=== PATIENT | female | born 1950 | race Caucasian/White ===

== ENCOUNTER 2016-09-22 21:52 | Emergency (ER) | payer BC, MEDICAID ==
[~2016-09-22] VITALS: Ht 162.6 cm; Wt 75.5 kg
[~2016-09-22 21:52] MED LIST: BENZ100C70 PO; CHOL50009 PO; CIPR500T4 PO; ENAL10TA PO; ONDA4TAB35 PO
[2016-09-22 22:05] VITALS: Ht 162.6 cm; Wt 75.5 kg
[2016-09-22] MEDS ORDERED: ONDANSETRON 4 MG INJ IV STA (22:15)
[2016-09-22] MEDS ORDERED: SOD CHLORIDE 0.9% 1,000 ML IV STA (22:15)
[2016-09-22] MEDS ORDERED: HYDROmorphONE 1 MG/ML SYG IV STA (22:15)
[2016-09-22] MEDS ORDERED: FAMOTIDINE 20 MG INJ IV STA (22:15)
[2016-09-22] MEDS ORDERED: LIDOCAINE/MYLANTA 40 ML BTL PO STA (22:15)
--- NOTE | 2016-09-22 22:55 | RADRPT ---
PROCEDURE: XR Chest. CLINICAL INDICATION: Chest pain. Abdominal pain TECHNIQUE: Portable AP semi erect view of the chest was obtained. COMPARISON: 18:16 FINDINGS: The cardiomediastinal silhouette is within normal limits. The lungs are clear. There is no evidenc e for pleural effusion, pneumothorax or pulmonary vascular congestion. Dextroscoliosis of the thora cic spine is again noted without evidence of acute osseous abnormality. No evidence of free air belo w the diaphragm. Calcification is visible within the aorta RPTAT:HJJR IMPRESSION: 1.No evidence for acute intrathoracic pathology or interval change from 05/14/2015. 2. Thoracic dextroscoliosis unchanged. 3. Aortic atherosclerosis is present. Physician Iris Date Time Electronically viewed and signed by Jerald Whyte Physician on 09/22/2016 22:55 /
--- NOTE | 2016-09-22 23:00 | RADRPT ---
PROCEDURE: CT abdomen and pelvis without contrast. CLINICAL INDICATION: Abdominal pain TECHNIQUE: CT scan of the abdomen and pelvis without contrast was performed. Sagittal and coronal reformatted images were obtained from the axial source images. CTDI = 18.06 mGy; DLP = 969.36 mGy-c m COMPARISON: CT 05/14/2015 FINDINGS: Visualized lower thorax: Dependent bibasilar subsegmental atelectasis is present. The visualized h eart is top normal in size. There is no evidence for pleural effusion. Liver, gallbladder, pancreas and spleen: The liver is normal and size, contour and attenuation. Th ere is no evidence for a liver mass or ductal dilatation. Cholecystectomy clips are again demonstra geoffrey. No common bile duct abnormality is demonstrated. The pancreas is unremarkable. The spleen is normal in size. Adrenal glands and genitourinary system: The adrenal glands are normal bilaterally. The kidneys are normal and size, contour and attenuation with no evidence for masses, calculi or hydronephrosis. T he ureters are unremarkable. No urinary bladder abnormality is demonstrated. The uterus is not vis ualized compatible with hysterectomy as seen previously. There is no evidence of ovarian or adnexal mass. Gastrointestinal system: The stomach is normal in caliber with no abnormality of significance. The small bowel is normal in caliber with no ileus, obstruction or wall thickening. The appendix and s urrounding fat are within the limits of normal. Mild thickening of the colonic wall is suggested. Mild nonspecific colitis mostly in the transverse colon is unable to be excluded. There is no evide nce of diverticulitis. No pneumatosis is present. Peritoneum, retroperitoneum, lymph nodes and vessels: The abdominal aorta is normal in caliber. The re is moderate aortic and mild iliac atherosclerotic calcification. The inferior vena cava is unrem arkable. There is no evidence for adenopathy or mass. There is no ascites. No pneumoperitoneum is present Osseous structures and musculoskeletal findings: There is no fracture, lytic or blastic lesion. De mineralization and lower lumbar facet arthropathy is again noted. No muscular abnormality or soft t issue pathology is present, incidental calcified injection granulomata in the gluteal fat are seen. RPTAT:HJJR IMPRESSION: 1. Mild thickening of the colon wall predominately in the transverse segment unable to exclude colit is in the proper clinical setting and correlation with diarrhea clinically is recommended. 2. No evidence of bowel obstruction or ileus. 3. Changes of prior cholecystectomy and hysterectomy are again noted as seen on the study of 2015. 4. Dependent bibasilar subsegmental atelectasis. 5. Atherosclerotic calcification of the aorta and iliac systems Physician Iris Date Time Electronically viewed and signed by Jerald Whyte Physician on 09/22/2016 22:59 /
[2016-09-23 00:13] LABS: BASOPHILS % 0.3 % (0.0-2.0); EOSINOPHILS % 0.3 % (0.0-7.0); HEMATOCRIT 37.5 % (37.0-47.0); HEMOGLOBIN 12.3 g/dl (12.0-16.0); LYMPHOCYTES # 1.7 10^3/ul (0.8-2.9); MEAN CORPUSCULAR HEMOGLOBIN 31.5 pg (29.0-33.0); MEAN CORPUSCULAR HGB CONC 32.8 g/dl (32.0-37.0); MEAN CORPUSCULAR VOLUME 95.9 fl (82.0-101.0); MONOCYTE # 1.2 10^3/ul (0.3-0.9); MONOCYTES % 9.7 % (0.0-11.0); NEUTROPHIL # 8.7 10^3/ul (1.6-7.5); NEUTROPHILS % 73.6 % (39.0-77.0); PLATELET COUNT 215 10^3/UL (140-415); RED BLOOD COUNT 3.91 10^6/ul (4.20-5.40); WHITE BLOOD COUNT 11.8 10^3/ul (4.8-10.8)
[2016-09-23 00:33] LABS: ALANINE AMINOTRANSFERASE 27 IU/L (13-69); ALBUMIN 3.7 g/dl (3.3-4.9); ALBUMIN/GLOBULIN RATIO 1.12; ALKALINE PHOSPHATASE 80 IU/L (42-121); ANION GAP 16 (8-16); ASPARTATE AMINO TRANSFERASE 24 IU/L (15-46); BILIRUBIN,INDIRECT 0.2 mg/dl (0-1.1); BILIRUBIN,TOTAL 0.2 mg/dl (0.2-1.3); BLOOD UREA NITROGEN 25 mg/dl (7-20); CALCIUM 8.5 mg/dl (8.4-10.2); CARBON DIOXIDE 26 mmol/L (21-31); CHLORIDE 105 mmol/L (97-110); CREATININE 0.67 mg/dl (0.44-1.00); GLUCOSE 152 mg/dl (70-220); SODIUM 143 mmol/L (135-144)
[2016-09-23 00:45] LABS: TROPONIN-I < 0.012 ng/ml (0.00-0.12)
[2016-09-23 01:23] LABS: ADD UMIC NO; UR ASCORBIC ACID NEGATIVE (NEGATIVE); UR BILIRUBIN (Dip) NEGATIVE (NEGATIVE); UR BLOOD (Dip) NEGATIVE (NEGATIVE); UR CLARITY CLEAR (CLEAR); UR COLOR STRAW (YELLOW); UR GLUCOSE (Dip) 1+ mg/dL (NEGATIVE); UR KETONES (Dip) NEGATIVE (NEGATIVE); UR LEUKOCYTE ESTERASE (Dip) NEGATIVE Leu/ul (NEGATIVE); UR NITRITE (Dip) NEGATIVE (NEGATIVE); UR SPECIFIC GRAVITY (Dip) 1.014 (1.003-1.030); UR TOTAL PROTEIN (Dip) NEGATIVE (NEGATIVE); UR UROBILINOGEN (Dip) NEGATIVE (NEGATIVE)
--- NOTE | 2016-09-23 01:32 | ERD ---
ER Documentation Chief Complaint Date/Time DATE: 09/23/16 TIME: 01:31 Chief Complaint "N/V with gastritis flare up and diarrhea for past 2 days" pt crying HPI This is a 65-year-old female comes with nausea vomiting gastritis flare after she had spicy food. Patient has known history of gastritis and ulcer disease. No fevers no chills. Mild nausea but no actual vomiting. No other current complaints. ROS All systems reviewed and are negative except as per history of present illness. Medications Home Meds Active Scripts Benzonatate* (Tessalon Perle*) 100 Mg Capsule, 100 MG PO Q8H Y for COUGH, #30 CAP Prov:LAUREN GANT 05/14/15 Ciprofloxacin Hcl* (Ciprofloxacin Hcl*) 500 Mg Tablet, 500 MG PO BID, #14 TAB Prov:LAUREN GANT 05/14/15 Ondansetron Hcl* (Zofran* ODT) 4 mg -ODT Tab.disper, 4 MG PO Q4H Y for NAUSEA AND OR VOMITING, #20 TAB Prov:LAUREN GANT 05/14/15 Reported Medications Cholecalciferol* (Vitamin D*) 5,000 Unit Tablet, 5000 UNIT PO DAILY, TAB 05/14/15 Enalapril Maleate* (Enalapril Maleate*) 10 Mg Tablet, 10 MG PO DAILY, TAB 05/14/15 Allergies Allergies: Coded Allergies: No Known Allergy (Unverified , 09/22/16) PMhx/Soc History of Surgery: Yes (gallbladder) Hx Cardiac Disorders: Yes (HTN, OR 1996) Hx Alcohol Use: No Hx Substance Use: No Hx Tobacco Use: No Smoking Status: Never smoker Physical Exam Vitals Vital Signs Date Time Temp Pulse Resp B/P Pulse Ox O2 Delivery O2 Flow Rate FiO2 09/22/16 23:37 98.3 16 150/77 99 Nasal Cannula 2.0 09/22/16 22:05 97.6 60 18 212/91 98 Physical Exam Const: [] Head: Atraumatic Eyes: Normal Conjunctiva ENT: Normal External Ears, Nose and Mouth. Neck: Full range of motion..~ No meningismus. Resp: Clear to auscultation bilaterally Cardio: Regular rate and rhythm, no murmurs Abd: Soft, non tender, non distended. Normal bowel sounds Skin: No petechiae or rashes Back: No midline or flank tenderness Ext: No cyanosis, or edema Neur: Awake and alert Psych: Normal Mood and Affect Result Diagram: 09/23/16 0005 09/23/16 0005 Results 24 hrs Laboratory Tests Test 09/23/16 00:05 09/23/16 00:25 White Blood Count 11.810^3/ul Red Blood Count 3.9110^6/ul Hemoglobin 12.3g/dl Hematocrit 37.5% Mean Corpuscular Volume 95.9fl Mean Corpuscular Hemoglobin 31.5pg Mean Corpuscular Hemoglobin Concent 32.8g/dl Red Cell Distribution Width 13.0% Platelet Count 07033^3/UL Mean Platelet Volume 11.0fl Neutrophils % 73.6% Lymphocytes % 14.0% Monocytes % 9.7% Eosinophils % 0.3% Basophils % 0.3% Nucleated Red Blood Cells % 0.0/100WBC Neutrophils # 8.710^3/ul Lymphocytes # 1.710^3/ul Monocytes # 1.210^3/ul Eosinophils # 0.010^3/ul Basophils # 0.010^3/ul Nucleated Red Blood Cells # 0.010^3/ul Sodium Level 143mmol/L Potassium Level 4.0mmol/L Chloride Level 105mmol/L Carbon Dioxide Level 26mmol/L Anion Gap 16 Blood Urea Nitrogen 25mg/dl Creatinine 0.67mg/dl Glucose Level 152mg/dl Calcium Level 8.5mg/dl Total Bilirubin 0.2mg/dl Direct Bilirubin 0.00mg/dl Indirect Bilirubin 0.2mg/dl Aspartate Amino Transf (AST/SGOT) 24IU/L Alanine Aminotransferase (ALT/SGPT) 27IU/L Alkaline Phosphatase 80IU/L Troponin I < 0.012ng/ml Total Protein 7.0g/dl Albumin 3.7g/dl Globulin 3.30g/dl Albumin/Globulin Ratio 1.12 Lipase 565U/L Urine Color STRAW Urine Clarity CLEAR Urine pH 7.0 Urine Specific [place] 1.014 Urine Ketones NEGATIVEmg/dL Urine Nitrite NEGATIVEmg/dL Urine Bilirubin NEGATIVEmg/dL Urine Urobilinogen NEGATIVEmg/dL Urine Leukocyte Esterase NEGATIVELeu/ul Urine Hemoglobin NEGATIVEmg/dL Urine Glucose 1+mg/dL Urine Total Protein NEGATIVEmg/dl Current Medications Medications (Trade) Dose Ordered Sig/Salome Route PRN Reason Start Time Stop Time Status Last Admin Dose Admin Sodium Chloride (NS) 1,000 ml @ 1,000 mls/hr Q1H STAT IV 09/22/16 22:15 09/22/16 23:14 DC 09/22/16 22:28 Hydromorphone HCl (Dilaudid) 1 mg ONCE STAT IV 09/22/16 22:15 09/22/16 22:17 DC 09/22/16 22:27 Ondansetron HCl (Zofran Inj) 4 mg ONCE STAT IV 09/22/16 22:15 09/22/16 22:17 DC 09/22/16 22:27 Famotidine (Pepcid Iv) 20 mg ONCE STAT IV 09/22/16 22:15 09/22/16 22:17 DC 09/22/16 22:27 Miscellaneous Medication (Gi Cocktail (2)) 40 ml ONCE STAT PO 09/22/16 22:15 09/22/16 22:17 DC 09/22/16 22:27 Procedures/MDM Medical decision-making: Patient with acute gastritis flare. At this point clinically stable. Discharged home with pain medication and Zofran. Follow-up with PCP. Departure Diagnosis: Primary Impression: Abdominal pain Abdominal location: epigastric Qualified Code: R10.13 - Epigastric pain Additional Impression: Gastritis Gastritis type: unspecified gastritis Chronicity: unspecified Gastritis bleeding: presence of bleeding unspecified Qualified Code: K29.70 - Gastritis , presence of bleeding unspecified, unspecified chronicity, unspecified gastritis type Condition: Stable SUSAN LEIVA Sep 23, 2016 01:32
[2016-09-23] MEDS ORDERED: FAMO-96 PO (01:37)
[2016-09-23] MEDS ORDERED: SUCR1TAB56 PO (01:37)
[2016-09-23 01:55] VITALS: BP 155/68; PULSE 77; RESP 16; TEMP 98.3
== END 2016-09-23 01:58 | disposition home or self-care (01) ==
LOC: E/R 21:52
DX: R10.13 Epigastric pain (principal); K29.70 Gastritis, unspecified, without bleeding; I10 Essential (primary) hypertension
CPT/HCPCS: 36415; 71010; 74176; 80053; 81003; 83690; 84484; 85025; 93005; 96374; 96375; J1170; J2405; J7030; Z7502; Z7610

== ENCOUNTER 2017-04-25 19:43 | Emergency (ER) | END 2017-04-26 03:09 | disposition home or self-care (01) ==